=== PATIENT | male | born 1950 | race Caucasian/White ===

== ENCOUNTER 2020-11-16 08:00 | Outpatient (CLI) | payer OTHER | END 2020-11-16 18:00 | disposition home or self-care (01) | LOC: PPH VACUNA 08:00 | PROVIDERS: ATTEND Emergency Medicine Pediatric Emergency Medicine | DX: Z23 Encounter for immunization (principal) ==

== ENCOUNTER 2020-12-07 21:10 | Outpatient (CLI) | payer OTHER | END 2020-12-07 21:11 | disposition home or self-care (01) | LOC: PPH VACUNA 21:10 | PROVIDERS: ATTEND Emergency Medicine Pediatric Emergency Medicine | DX: Z23 Encounter for immunization (principal) ==

== ENCOUNTER 2021-11-17 12:00 | Outpatient (CLI) | payer OTHER | END 2021-11-17 12:30 | disposition home or self-care (01) | LOC: ASH CLINIC 12:00 | DX: U07.1 COVID-19 (principal); Z23 Encounter for immunization ==